=== PATIENT | male | born 1945 | race Caucasian/White ===

== ENCOUNTER 2017-01-17 06:34 | Day surgery (SDC) | payer OTHER ==
[~2017-01-17] VITALS: Ht 180.3 cm; Wt 97.3 kg
[~2017-01-17 06:34] MED LIST: ACETAMINOPHEN325 MG PO; ALDACTONE50 MG PO; BAYER CHEWABLE81 MG PO; DIPROLENE 0.05%60 M1 TOPICAL; HUMULIN R100 U/ML SC; LANTUS INSULIN10 ML SC; LASIX20 MG PO; MONODOX100 MG PO; NEURONTIN800 MG PO; PRILOSEC20 MG PO
[2017-01-17 07:23] VITALS: Ht 180.3 cm; Wt 97.3 kg
[2017-01-17 07:55] LABS: BASOPHILS 0.3 % (0-2); EOSINOPHILS 1.8 % (0-7); HEMATOCRIT 27.9 % (42.0-54.0); IMMATURE GRANULOCYTES 0.3 % (0-5); LYMPHOCYTES 14.8 % (15-50); MCH 21.1 pg (26.0-34.0); MCHC 28.7 g/dL (31.0-37.0); MCV 73.6 fL (80.0-100.0); MONOCYTES 9.2 % (2-11); NEUTROPHILS 73.6 % (40-80); RBC 3.79 10x6/uL (4.20-6.10); RDW 17.5 % (11.5-14.5); WBC 3.3 10x3/uL (4.8-10.8)
[2017-01-17 08:00] LABS: PLATELET COUNT 59 10x3/uL (130-400)
[2017-01-17 08:14] LABS: ALBUMIN 3.4 g/dL (3.4-5.0); ALKALINE PHOSPHATASE 67 U/L (46-116); ALT (SGPT) 25 U/L (10-68); BILIRUBIN - TOTAL 0.97 mg/dL (0.2-1.3); CALC OSMOLALITY 284 mosm/kg (275-300); CALCIUM 8.4 mg/dL (8.5-10.1); CHLORIDE - SERUM 109 mmol/L (98-107); CREATININE - SERUM 0.9 mg/dL (0.6-1.3); POTASSIUM - SERUM 3.8 mmol/L (3.5-5.1); SODIUM 143 mmol/L (136-145); UREA NITROGEN 12 mg/dL (7-18); eGFR NON AFRICAN AMERICAN 89 mL/min (90-120)
[2017-01-17 08:18] LABS: GLUCOSE 107 mg/dL (74-106)
[2017-01-17 09:40] LABS: APTT 26.4 SECONDS (22.8-39.4)
[2017-01-17 09:42] LABS: PROTIME 12.1 SECONDS (11.6-15.0)
[2017-01-17 09:43] LABS: INR 1.1 (0.85-1.17)
--- NOTE | 2017-01-17 10:16 | NUR ---
0945 SERVED FULL LIQUID DIET. COMPLAINS OF FEELING QUEAZY. DIET HELD @ BEDSIDE. Janina CUEVA R.N. 1000 ZOFRAN 4MG IV FOR NAUSEA. Janina CUEVA R.N.
--- NOTE | 2017-01-17 13:33 | NUR ---
1135 DRESSED, AWAKE & ALERT. GIVEN DISCHARGE INFROMATION INCLUDING MED REC., SHEET LISTING NSAIDS & BLOOD THINNERS, REFLUX ESOPHAGITIS/HIATEL HERNIA DIET SHEET, REFLUX ESOPHAGITIS INFO SHEETS, & DISCAHRGE INSTRUCTIONS SHEET POST ENDOSCOPIC PROCEDURES. PT VOICED UNDERSTANDING. COPIES OF LABWORK, PROCEDURE NOTE, & HISTORY & PHYSICAL PLACED IN [place] FOR [facility]. TO PRIVATE CAR PER WHEELCHAIR BY THIS NURSE. HOME VIA [facility] ACCOMPANIED BY 2 [facility]. Janina CUEVA R.N.
--- NOTE | 2017-01-18 09:43 | OP ---
PATIENT NAME: SHEBA SNOW MEDICAL RECORD: [id number] :49 LOCATION:[facility] ADMISSION DATE: SURGEON: ANTONIO HECTOR MD DATE OF OPERATION: 01/17/2017 PREOPERATIVE DIAGNOSES: 1. History of hematemesis due to bleeding esophageal varices 2. Hepatitis C. POSTOPERATIVE DIAGNOSES: 1. History of hematemesis due to bleeding esophageal varices 2. Hepatitis C. 3. Mild antral gastritis. PROCEDURE: 1. Esophagogastroduodenoscopy with antral biopsy. 2. Endoscopic variceal ligation with esophageal bands times 5. SURGEON: Antonio Hector MD. POST ACUTE CARE REGISTERED NURSE: None. BLOOD LOSS: Minimal. ANESTHESIA: IV sedation. COMPLICATIONS: None. The risks, possible complications and alternatives to procedure were explained to the patient. He elects to proceed. ENDOSCOPIC COURSE: The patient was conveyed to endoscopy suite electively on 01/17/2017. It was necessary to have the anesthesia staff present in order to be prepared for endotracheal intubation if we develop significant hemetemesis. IV sedation was induced by the anesthesia staff. A bite block was inserted. A gastroscope was inserted into the mouth. It was advanced easily into the hypopharynx. The esophagus was easily intubated as were the stomach and duodenum. Upon withdrawal, retroflexed and angulus views were obtained. Antral biopsies were obtained. I withdrew the gastroscope. We then loaded the endoscopic drawing kiln operator. We advanced an endoscopic drawing kiln operator into the distal esophagus. Three bands were successfully deployed. Other bands were not successful deployed. I withdrew the gastroscope. We loaded a new band around the gastroscope. I advanced the drawing kiln operator down into the esophagus. Two additional bands were applied successfully. There was no bleeding. The gastroscope was then withdrawn under direct vision. The patient was then conveyed back to his room. I will see the patient on rounds out of the snf. There is no need for followup in my office unless the patient develops complication related to this operative procedure. TRANSINT:[id number] Voice Confirmation ID: [id number] DOCUMENT ID: [id number] OPERATIVE REPORT [id number] EDYSHEBA MCLEOD ANTONIO HECTOR MD at 0943 CC: [id number] DICTATION DATE: 01/17/17917 CARDIOVASCULAR RADIOLOGIC TECHNOLOGIST: 01/17/17 1029 [facility] 01/17/17 [facility] [address] [place] [address]
--- NOTE | 2017-01-18 09:43 | HP ---
PATIENT: SHEBA SNOW MEDICAL RECORD: [id number] ACCOUNT: [id number] LOCATION:[facility] : 49 ADMISSION DATE: 01/17/17 HISTORY AND PHYSICAL EXAMINATION CHIEF COMPLAINT: Bleeding. HISTORY OF PRESENT ILLNESS: The patient has had a history of hepatitis C with varices. The patient has chronic GI blood loss. I was asked to see the patient and consider banding. He has had grade III esophageal varices and has had a previous banding. He has undergone transfusions in the past. He is chronically anemic. He has had hemetemesis. He had a significant episode of hematemesis on 11/11/2016. PAST MEDICAL AND SURGICAL HISTORY: History of tuberculosis in the past, hepatitis C, coronary artery disease, history of myocardial infarction, history of CVA with left-sided weakness, also has dysphagia, insulin-dependent diabetes mellitus, cirrhosis. MEDICATIONS: Acetaminophen, furosemide, aspirin, gabapentin, Humulin insulin, Prilosec, spironolactone, levetiracetam. The patient is thrombocytopenic today. ALLERGIES: No known drug allergies. SOCIAL HISTORY: Ex-smoker. PHYSICAL EXAMINATION: GENERAL: The patient does appear acutely ill. Also appears chronically ill. VITAL SIGNS: Reviewed. HEAD: External ears appear normal. EYES: Extraocular movements are intact. NECK: Trachea is midline. CHEST: No intercostal retractions. PULMONARY: Nonlabored, no stridor. ABDOMEN: Doughy with fluid wave. IMPRESSION: History of hepatitis C with hematemesis and esophageal varices. PLAN: EGD with probable banding. The risks, possible complications and alternatives to procedure were explained to the patient. He elects to proceed. Discussions specifically included the chance of postprocedural bleeding and delayed bleeding. TRANSINT:[id number] Voice Confirmation ID: [id number] DOCUMENT ID: [id number] HISTORY AND PHYSICAL [id number] EDYRAMANSHEBACHRIS DEWITT MD at 0943 CC: MINNIE ROSE STIEVE, JEFFREY MD and PILY FLORES [id number] DICTATION DATE: 01/17/17 0842 PATIENT SERVICES TECHNICIAN: 01/17/17 0958 [facility] 01/17/17 [place] [address]
== END 2017-01-17 11:35 ==
LOC: D.OPS 06:34
PROVIDERS: Anesthesiology
DX: I85.01 Esophageal varices with bleeding (principal); B19.20 Unspecified viral hepatitis C without hepatic coma; E11.9 Type 2 diabetes mellitus without complications; I25.10 Atherosclerotic heart disease of native coronary artery without angina pectoris; Z01.812 Encounter for preprocedural laboratory examination